=== PATIENT | female | born 1990 | race Caucasian/White ===

== ENCOUNTER → 2020-08-22 15:15 | Outpatient (BNVA) | payer OTHER, SELFPAY | PROVIDERS: Family Provider Nurse Practitioner; PCP Nurse Practitioner Family; Visit Provider Nurse Practitioner Family | DX: Z20.828 Contact with and (suspected) exposure to other viral communicable diseases (principal); J06.9 Acute upper respiratory infection, unspecified | CPT/HCPCS: 87635 ==

== ENCOUNTER → 2021-01-26 11:20 | Outpatient (BNVA) | payer SELFPAY | PROVIDERS: Family Provider Nurse Practitioner; PCP Nurse Practitioner Family; Visit Provider Nurse Practitioner Family | DX: J01.90 Acute sinusitis, unspecified (principal); B96.89 Other specified bacterial agents as the cause of diseases classified elsewhere; H66.93 Otitis media, unspecified, bilateral; Z20.822 Contact with and (suspected) exposure to COVID-19; H60.90 Unspecified otitis externa, unspecified ear | CPT/HCPCS: 87635 ==

== ENCOUNTER → 2021-09-19 11:33 | Outpatient (BNVA) | payer OTHER, SELFPAY | PROVIDERS: Family Provider Nurse Practitioner; PCP Nurse Practitioner Family; Visit Provider Registered Nurse | DX: R50.9 Fever, unspecified (principal); R05.9 Cough, unspecified; R68.89 Other general symptoms and signs; Z20.822 Contact with and (suspected) exposure to COVID-19 | CPT/HCPCS: 87400; 87635 ==

== ENCOUNTER 2023-06-28 15:30 | Emergency (ER) | payer MEDICAID, SELFPAY ==
[2023-06-28 15:52] VITALS: BP 154/110; PULSE 107; RESP 17; TEMP 36.9; O2SAT 100; BMI 37.5
[2023-06-28 17:09] LABS: Basophils # 0.1 10^3/uL (0.0-0.1); Basophils % 0.4 %; Eosinophils # 0.1 10^3/uL (0.0-0.8); Eosinophils % 0.7 %; Hematocrit 32.6 % (36-47); Lymphocytes # 2.1 10^3/uL (0.8-4.8); Lymphocytes % 14.5 %; Mean Corpuscular HGB Conc 29.4 g/dL (30-55); Mean Corpuscular Hemoglobin 20.6 pg (27-33); Mean Corpuscular Volume 70.1 fl (85-98); Mean Platelet Volume 11.3 fL (7.4-10.4); Monocytes # 1.1 10^3/uL (0.2-0.9); Neutrophils # 10.81 10^3/uL (1.8-7.7); Nucleated Red Blood Cells % 0 %; Platelet Count 248 10^3/cmm (157-399); Red Blood Count 4.65 10^6/uL (3.85-5.65); Red Cell Distribution Width 18.3 % (12.1-15.1); White Blood Count 14.23 10^3/uL (3.29-11.43)
[2023-06-28 17:28] VITALS: BP 107/61; PULSE 94; RESP 18; O2SAT 100
--- NOTE | 2023-06-28 17:30 | W.ED.ABDPA2 ---
HPI - Abdominal Pain General: Chief Complaint: Abdominal Pain Stated Complaint: possible appendicitis, dr sent Time Seen by Provider: 06/28/23 17:10 Source: patient Mode of arrival: ambulatory History of Present Illness: 32-year-old couple of days.Female presents emergency room complaining of right lower quadrant abdominal cramping going on for the last 3 days. No dysuria urgency or frequency. Worse when she is walking no vomiting no diarrhea no hematochezia melena hematemesis cough cannabis no previous abdominal surgeries MD elicited complaint: abdominal pain Location: RLQ Quality: cramping Exacerbating factors: nothing Relieving factors: nothing Associated Symptoms: Denies anorexia, belching, bloating, change in bowel habits, change in stool character, chills, coffee ground emesis, constipation, GI cramping, diarrhea, dyspepsia, dysuria, excessive flatus, fever(s), heartburn, hematochezia, hematuria, hematemesis, fecal incontinence, loose stools, melena, nausea, poor appetite, syncope and vomiting Review of Systems Const: Denies: fever(s) or chills Card: Denies: syncope Resp: Denies: dyspnea GI: Denies: nausea, vomiting, hematemesis, coffee ground emesis, heartburn, diarrhea, constipation, bloating, GI cramping, belching, excessive flatus, fecal incontinence, change in bowel habits, change in stool character, hematochezia or melena : Denies: dysuria or hematuria Musc: Denies: neck pain or back pain Skin/Breast: Denies: rash PFSH ED PFSH: Medical History Acute neck pain Otitis externa Acute bacterial sinusitis Social History Smoking and tobacco/nicotine status: never used tobacco/nicotine Physical Exam Const: GENERAL APPEARANCE: cooperative and comfortable ORIENTATION/CONSCIOUSNESS: Yes awake, Yes oriented to person, Yes oriented to place and Yes oriented to time HENMT: COMMON NORMALS: normocephalic, atraumatic and hearing grossly normal bilaterally HEAD & SCALP: normocephalic and atraumatic Resp: COMMON NORMALS: normal respiratory effort, No retractions, No use of accessory muscles and clear to auscultation bilaterally AUSCULTATION: clear to auscultation bilaterally Cardio: COMMON NORMALS: regular rate, regular rhythm and No murmurs present (Cardio) RATE: regular rate RHYTHM: regular rhythm GI: COMMON NORMALS: No hepatosplenomegaly present AUSCULTATION: Yes normoactive bowel sounds PALPATION: Yes Tenderness to palpation present (GI) Details: RLQ, No Guarding due to palpation present (GI) and Yes No hepatosplenomegaly present Extremity: COMMON NORMALS: normal to inspection, capillary refill normal, no clubbing, cyanosis or edema, no calf tenderness and no pedal edema Neuro: SENSORIUM/ORIENTATION: Yes oriented to person, Yes oriented to place and Yes oriented to time Skin: COMMON NORMALS: no rashes or lesions noted GENERAL SKIN EXAM: no rashes or lesions noted Course Vital Signs: Vital signs: Vital Signs Temperature 98.4 F 06/28/23 15:52 Pulse Rate 94 06/28/23 17:28 Respiratory Rate 18 06/28/23 17:28 Blood Pressure 107/61 06/28/23 17:28 Pulse Oximetry 100 06/28/23 17:28 Oxygen Delivery Me thod Room Air 06/28/23 17:28 MDM - Abdominal Pain Medical Decision Making Labs and imaging reviewed's ovarian cyst discharge home follow-up with primary care gynecology Differential Diagnosis Likely abdominal pain, calculus of kidney, constipation, endometriosis, gastroenteritis and small bowel obstruction Medical Records I reviewed the patient's medical records. Lab Data I reviewed the patient's lab results. 06/28/23 16:12 06/28/23 16:12 Labs/Radiology: Radiology Impressions Abdomen/Pelvis CT 06/28/23 17:48 IMPRESSION: 5.7 cm right ovarian/adnexal cyst. Without prior comparison recommend precautionary 3-6 month follow-up ultrasound to ensure resolution given size. Laboratory Results WBC 14.23 10^3/uL (3.29-11.43) H 06/28/23 16:12 RBC 4.65 10^6/uL (3.85-5.65) 06/28/23 16:12 Hgb 9.60 g/dL (11.27-16.99) L 06/28/23 16:12 Hct 32.6 % (36-47) L 06/28/23 16:12 MCV 70.1 fl (85-98) L 06/28/23 16:12 MCH 20.6 pg (27-33) L 06/28/23 16:12 MCHC 29.4 g/dL (30-55) L 06/28/23 16:12 RDW 18.3 % (12.1-15.1) H 06/28/23 16:12 Plt Count 248 10^3/cmm (157-399) 06/28/23 16:12 MPV 11.3 fL (7.4-10.4) H 06/28/23 16:12 Neut % (Auto) 76.0 % 06/28/23 16:12 Lymph % (Auto) 14.5 % 06/28/23 16:12 Tom[place]kins % (Auto) 8.0 % 06/28/23 16:12 Eos % (Auto) 0.7 % 06/28/23 16:12 Baso % (Auto) 0.4 % 06/28/23 16:12 Neut # (Auto) 10.81 10^3/uL (1.8-7.7) H 06/28/23 16:12 Lymph # (Auto) 2.1 10^3/uL (0.8-4.8) 06/28/23 16:12 Tompkins # (Auto) 1.1 10^3/uL (0.2-0.9) H 06/28/23 16:12 Eos # (Auto) 0.1 10^3/uL (0.0-0.8) 06/28/23 16:12 Baso # (Auto) 0.1 10^3/uL (0.0-0.1) 06/28/23 16:12 Nucleated RBC % (auto) 0 % 06/28/23 16:12 Nucleated RBCs # 0.0 /100WBC 06/28/23 16:12 Sodium 136 mmol/L (136-145) 06/28/23 16:12 Potassium 3.9 mmol/L (3.5-5.1) 06/28/23 16:12 Chloride 104 mmol/L (98-107) 06/28/23 16:12 Carbon Dioxide 17 mmol/L (22-29) L 06/28/23 16:12 Anion Gap 18.9 (5-19) 06/28/23 16:12 BUN 11 mg/dL (6-20) 06/28/23 16:12 Creatinine 0.6 mg/dL (0.5-0.9) 06/28/23 16:12 GFR Calculation 115.9 mL/min (90-130) 06/28/23 16:12 Glucose 82 mg/dL (65-115) 06/28/23 16:12 Calculated Osmolality 280 mOsm/kg (285-295) L 06/28/23 16:12 Calcium 9.0 mg/dL (8.5-10.5) 06/28/23 16:12 Total Bilirubin 0.6 mg/dL (0.15-1.2) 06/28/23 16:12 AST 20 U/L (0-32) 06/28/23 16:12 ALT 14 U/L (0-33) 06/28/23 16:12 Alkaline Phosphatase 111 U/L (35-105) H 06/28/23 16:12 Total Protein 7.0 g/dL (6.6-8.7) 06/28/23 16:12 Albumin 4.2 g/dL (3.5-5.2) 06/28/23 16:12 Globulin 2.8 g/dL (1.3-4.6) 06/28/23 16:12 HCG, Qual Negative (Negative) 06/28/23 16:12 Urine Color Colorless (Yellow) 06/28/23 17:34 Urine Appearance Clear (CLEAR) 06/28/23 17:34 Urine pH 8 (5-7) H 06/28/23 17:34 Ur Specific [facility] 1.010 (1.005-1.030) 06/28/23 17:34 Urine Protein Neg (Negative) 06/28/23 17:34 Urine Glucose (UA) Norm (Normal) 06/28/23 17:34 Urine Ketones Negative (Negative) 06/28/23 17:34 Urine Blood Neg (Negative) 06/28/23 17:34 Urine Nitrate Negative (Negative) 06/28/23 17:34 Urine Bilirubin Neg (Negative) 06/28/23 17:34 Prot Sulfosalicylic Acd Negative (Negative) 06/28/23 17:34 Urine Urobilinogen Norm mg/dL (Negative) 06/28/23 17:34 Ur Leukocyte Esterase Trace (Negative) H 06/28/23 17:34 Urine RBC 0-4 /hpf (0-2) H 06/28/23 17:34 Urine WBC 0-4 /hpf (0-5) H 06/28/23 17:34 Ur Squamous Epith Cells 0-4 /hpf (0-5) H 06/28/23 17:34 Amorphous Sediment Not Reportable 06/28/23 17:34 Urine Bacteria Trace /hpf (NONE) 06/28/23 17:34 All radiology interpretation(s) finalized by discharge Discharge Plan Discharge Patient Disposition: Home Clinical Impression: Ovarian cyst Condition: Stable Prescriptions: New hydrocodone-acetaminophen 5-325 mg tablet 1 tab PO Q6H PRN (Reason: pain) Qty: 15 0RF diclofenac sodium 75 mg tablet,delayed release (DR/EC) 75 mg PO Q12H PRN (Reason: pain) Qty: 20 0RF Discharge Orders: Discharge ED (Routine); Ordered 06/28/23 Ordered By: Waylon Castaneda Referrals: THONG Palmer FNP [Primary Care Provider] - Lillian العراقي FNP [Family Provider] - Discharge Diet: Usual diet Discharge Activity: Increase activity as tolerated Patient Instructions: Ovarian Cyst (ED), Opioid Safety, Pain Management Activity Restrictions/Additional Instructions: Thank you for choosing [facility] for your healthcare needs today. Please realize this is an emergency room and that we are providing you with a medical screening exam and this may not be complete and all inclusive of all the testing and or work up that you may need to determine your ailment or severity of your illness. It is very important that you follow up as instructed or that you return to the Emergency Department should you have concerns or if your condition changes or worsens in any way. Follow-up with your doctor within the next 1 to 2 weeks. Coding Level of Care Code ED Resident Care Coordinator for Adrianna Loya
[2023-06-28 17:35] LABS: Alanine Aminotransferase 14 U/L (0-33); Albumin Level 4.2 g/dL (3.5-5.2); Alkaline Phosphatase 111 U/L (35-105); Aspartate Amino Transferase 20 U/L (0-32); Blood Urea Nitrogen 11 mg/dL (6-20); Carbon Dioxide 17 mmol/L (22-29); Chloride 104 mmol/L (98-107); Globulin 2.8 g/dL (1.3-4.6); Glomerular Filtration Rate 115.9 mL/min (90-130); Glucose 82 mg/dL (65-115); Osmolality Calculated 280 mOsm/kg (285-295); Sodium 136 mmol/L (136-145); Total Bilirubin 0.6 mg/dL (0.15-1.2)
[2023-06-28 17:40] LABS: HCG, Serum Qual Negative (Negative)
--- NOTE | 2023-06-28 17:48 | CTR_ITS ---
PROCEDURE INFORMATION: Exam: CT Abdomen And Pelvis Without Contrast Exam date and time: 06/28/2023 5:56 PM Age: 32 years old Clinical indication: Abdominal pain; Generalized TECHNIQUE: Imaging protocol: Computed tomography of the abdomen and pelvis without contrast. Radiation optimization: All CT scans at this facility use at least one of these dose optimization techniques: automated exposure control; mA and/or kV adjustment per patient size (includes targeted exams where dose is matched to clinical indication); or iterative reconstruction. REPORTING DATA: Count of CT and Cardiac NM exams in prior 12 months: This patient has received 0 known CTs and 0 known cardiac nuclear medicine studies in the 12 months prior to the current study. COMPARISON: No relevant prior studies available. RADIATION DOSE METRICS: Total DLP (mGy-cm): 949.43 FINDINGS: Liver: No acute findings. Gallbladder and bile ducts: No calcified stones. No ductal dilation. Pancreas: No ductal dilation. Spleen: No splenomegaly. Adrenal glands: No mass. Kidneys and ureters: No stones or hydronephrosis. Stomach and bowel: No obstruction. Appendix: Normal appendix. Intraperitoneal space: No free air. No significant fluid collection. Vasculature: No abdominal aortic aneurysm. Lymph nodes: No enlarged lymph nodes. Urinary bladder: Decompressed. Reproductive: 5.7 cm right ovarian/adnexal cystic lesion. IUD in place. Bones/joints: No acute findings. Soft tissues: Unremarkable. CT/CT abdomen pelvis wo con [id number] IMPRESSION: 5.7 cm right ovarian/adnexal cyst. Without prior comparison recommend precautionary 3-6 month follow-up ultrasound to ensure resolution given size.
[2023-06-28 17:57] LABS: Anion Gap 18.9 (5-19); Potassium 3.9 mmol/L (3.5-5.1)
[2023-06-28 18:06] LABS: Add Urine Microscopic? YES; Bilirubin Urine Neg (Negative); Blood Urine Neg (Negative); Glucose Urine UA Norm (Normal); Ketones Urine Negative (Negative); Leukocyte Esterase Urine Trace (Negative); Nitrate Urine Negative (Negative); Protein Urine Neg (Negative); Sulfosalicylic Acid Urine Negative (Negative); Urine Appearance Clear (CLEAR); Urine Color Colorless (Yellow); Urobilinogen Urine Norm (Negative); pH Urine 8 (5-7)
[2023-06-28 18:10] LABS: Bacteria Urine TRACE /hpf; RBC Urine 0-4 /hpf (0-2); Squamous Epithelial Cell Urine 0-4 /hpf (0-5); WBC Urine 0-4 /hpf (0-5)
== END 2023-06-28 23:36 | disposition home or self-care (01) ==
PROVIDERS: Emergency Medicine; Emergency Provider Family Medicine; Family Provider Nurse Practitioner; PCP Nurse Practitioner Family
DX: N83.201 Unspecified ovarian cyst, right side (principal)
CPT/HCPCS: 36415; 74176; 80053; 81001; 84703; 85025; 99284

== ENCOUNTER → 2024-02-20 16:30 | Outpatient (BNVA) | payer MEDICAID, SELFPAY | PROVIDERS: Family Provider Nurse Practitioner; PCP Nurse Practitioner Family; Visit Provider Nurse Practitioner Family | DX: Z12.4 Encounter for screening for malignant neoplasm of cervix (principal); R39.89 Other symptoms and signs involving the genitourinary system | CPT/HCPCS: 87070; 87205; 88175 ==

== ENCOUNTER → 2024-07-08 11:33 | Outpatient (BNVA) | payer SELFPAY | PROVIDERS: Family Provider Nurse Practitioner; PCP Nurse Practitioner Family; Visit Provider Nurse Practitioner Family | DX: M79.671 Pain in right foot (principal); M77.31 Calcaneal spur, right foot | CPT/HCPCS: 73630 ==

== ENCOUNTER 2025-04-14 06:29 | Outpatient (CLI) | payer MEDICAID, SELFPAY ==
--- NOTE | 2025-04-14 06:35 | US_ITS ---
WS: [id number] Complete ABDOMINAL ULTRASOUND HISTORY: PAIN COMPARISON: CT 06/28/2023 Liver: 13.4 cm in length. Small caliber liver. Diffuse moderate coarse echotexture throughout. No mass or intrahepatic duct dilatation. Portal Vein: Normal hepatopetal flow with monophasic waveform. Gallbladder: Normally distended gallbladder with no stones or wall thickening. CBD: 0.2 cm Pancreas: Normal size and echogenicity. Right kidney: 10.4 cm x 4.6 x 4.7 cm. Cortex:1.0 cm. Normal size and echogenicity. No hydronephrosis or mass. Left kidney: 10.4 cm x 3.9 cm x 3.7 cm. Cortex: 1.0 cm. Normal size and echogenicity. No hydronephrosis or mass. Spleen: 11.6 cm. Normal size and echogenicity. Aorta and IVC: Unremarkable abdominal aorta and IVC. US/US abdomen complete* [id number] Impression: 1. Mild hepatic steatosis. No intrahepatic duct dilatation. 2. Otherwise abdominal ultrasound is negative. Negative gallbladder.
== END 2025-04-14 06:30 | disposition home or self-care (01) ==
LOC: RAD 06:30
PROVIDERS: PCP Nurse Practitioner Family; Visit Provider Nurse Practitioner Family
DX: R10.13 Epigastric pain (principal); K76.0 Fatty (change of) liver, not elsewhere classified
CPT/HCPCS: 76700

== ENCOUNTER → 2025-07-20 10:03 | Outpatient (BNVA) | payer MEDICAID, SELFPAY | PROVIDERS: PCP Nurse Practitioner Family; Visit Provider Obstetrics & Gynecology | DX: R10.20 Pelvic and perineal pain unspecified side (principal); N88.8 Other specified noninflammatory disorders of cervix uteri; Z97.5 Presence of (intrauterine) contraceptive device; R93.89 Abnormal findings on diagnostic imaging of other specified body structures; N83.201 Unspecified ovarian cyst, right side | CPT/HCPCS: 76830 ==